=== PATIENT | female | born 1960 | race African-American/Black ===

== ENCOUNTER 2021-03-04 12:28 | Inpatient (IN) ==
[2021-03-04] MEDS ORDERED: PNEUMOCOCCAL VACCINE (23 VALENT) 0.5 ML VIAL IM ONE (14:49)
[2021-03-04] MEDS ORDERED: ONDANSETRON 4 MG/2 ML VIAL IV PRN (18:27)
[2021-03-04] MEDS ORDERED: ACETAMINOPHEN 325 MG TABLET PO PRN (18:27)
[2021-03-04] MEDS ORDERED: DOCUSATE SODIUM 100 MG CAPSULE PO PRN (18:29)
[2021-03-04] MEDS ORDERED: DICLOFENAC 1% GEL 100 GM TUBE TOP PRN (18:43)
[2021-03-04] MEDS ORDERED: LEVOFLOXACIN INJ 750 MG/150 ML PREMIX IV ONE (18:59)
[2021-03-04] MEDS ORDERED: LEVOFLOXACIN INJ 750 MG/150 ML PREMIX IV SCH (19:00)
[2021-03-04] MEDS: SODIUM CHLORIDE 0.9% 1,000 ML IV SCH (19:19)
[2021-03-04] MEDS: ENOXAPARIN 30 MG/0.3 ML SYRINGE SUBCUT SCH (19:19)
[2021-03-04] MEDS: SIMVASTATIN 20 MG TABLET PO SCH (21:06)
[2021-03-05 05:52] LABS: Basophils % 0.3 % (0.0-0.8); Hematocrit 39.7 VOL% (35.7-47.0); Hemoglobin 12.5 GM/DL (12.0-16.0); Immature Granulocytes % 0.5 %; Immature Granulocytes Absolute 0.02 #; Lymphocytes # 0.9 10*3/uL (1.4-4.0); Mean Corpuscular HGB Conc 31.5 GM/DL (32-36); Mean Corpuscular Volume 78.3 FL (87-102); Mean Platelet Volume 10.3 FL (9.6-12.0); Monocytes % 8.4 % (1.7-12.7); Neutrophils % 67.8 % (38.7-73.9); Platelet Count 223 T/CUMM (130-400); Red Blood Count 5.07 MC/CUMM (3.8-5.5)
[2021-03-05 06:15] LABS: Albumin 2.8 G/DL (3.4-5.0); Bilirubin,Total 0.9 MG/DL (0.20-1.00); Calcium 8.6 MG/DL (8.5-10.1); Osmolality,Calculated 267.4 MOS/KG (273-304); Potassium 3.1 MMOL/L (3.5-5.1); Total Protein 7.1 G/DL (6.4-8.2)
[2021-03-05] MEDS ORDERED: POTASSIUM CHLORIDE 10 MEQ TABLET PO SCH (08:00)
[2021-03-05 09:21] LABS: Albumin 2.9 G/DL (3.4-5.0); Bilirubin,Direct 0.18 MG/DL (0.0-0.20); Bilirubin,Indirect 0.6 MG/DL (0.0-1.0); Bilirubin,Total 0.8 MG/DL (0.20-1.00); Total Protein 7.1 G/DL (6.4-8.2)
[2021-03-05] MEDS: ASPIRIN EC 81 MG TABLET PO SCH (11:09)
[2021-03-05] MEDS: CHOLECALCIFEROL 5,000 UNIT TABLET PO SCH (11:09)
[2021-03-05] MEDS: MELOXICAM 7.5 MG TABLET PO SCH (11:10)
[2021-03-05] MEDS: TRIAMTERENE/HCTZ 37.5-25 MG TABLET PO SCH (11:10)
[2021-03-05] MEDS: PANTOPRAZOLE 40 MG TABLET PO SCH (11:10)
[2021-03-05] MEDS: cloNIDine 0.1 MG TABLET PO SCH (11:10)
[2021-03-05] MEDS: SODIUM CHLORIDE 0.9% 1,000 ML IV SCH (17:51)
[2021-03-05] MEDS: ENOXAPARIN 30 MG/0.3 ML SYRINGE SUBCUT SCH (17:51)
[2021-03-05] MEDS: SIMVASTATIN 20 MG TABLET PO SCH (21:00)
[2021-03-05] MEDS: SERTRALINE 50 MG TABLET PO SCH (21:01)
[2021-03-06] MEDS: SODIUM CHLORIDE 0.9% 1,000 ML IV SCH ×2 (00:30→21:13)
[2021-03-06] MEDS: MELOXICAM 7.5 MG TABLET PO SCH (08:50)
[2021-03-06] MEDS: MULTIVITAMIN (OCUVITE) TABLET PO SCH (08:50)
[2021-03-06] MEDS: ASPIRIN EC 81 MG TABLET PO SCH (08:51)
[2021-03-06] MEDS: POTASSIUM CHLORIDE 20 MEQ TABLET PO SCH (08:51)
[2021-03-06] MEDS: cloNIDine 0.1 MG TABLET PO SCH (08:51)
[2021-03-06] MEDS: TRIAMTERENE/HCTZ 37.5-25 MG TABLET PO SCH (08:51)
[2021-03-06] MEDS: PANTOPRAZOLE 40 MG TABLET PO SCH (08:51)
[2021-03-06] MEDS: CHOLECALCIFEROL 5,000 UNIT TABLET PO SCH (08:51)
[2021-03-06] MEDS: cefTRIAXone 2,000 MG in SODIUM CHLORIDE 0.9% 100 ML IV SCH (11:09)
[2021-03-06] MEDS: AZITHROMYCIN INJ 250 MG in SODIUM CHLORIDE 0.9% 250 ML IV SCH (11:59)
[2021-03-06] MEDS: SERTRALINE 50 MG TABLET PO SCH (21:12)
[2021-03-06] MEDS: SIMVASTATIN 20 MG TABLET PO SCH (21:12)
[2021-03-06] MEDS: ENOXAPARIN 30 MG/0.3 ML SYRINGE SUBCUT SCH (21:17)
[2021-03-07] MEDS: SODIUM CHLORIDE 0.9% 1,000 ML IV SCH ×2 (01:57→16:19)
[2021-03-07 05:32] LABS: Basophils % 0.2 % (0.0-0.8); Hematocrit 39.3 VOL% (35.7-47.0); Hemoglobin 12.4 GM/DL (12.0-16.0); Immature Granulocytes % 0.5 %; Immature Granulocytes Absolute 0.02 #; Lymphocytes # 1.4 10*3/uL (1.4-4.0); Lymphocytes % 31.9 % (21.3-54.2); Mean Corpuscular HGB Conc 31.6 GM/DL (32-36); Mean Platelet Volume 10.6 FL (9.6-12.0); Monocytes % 8.7 % (1.7-12.7); Neutrophils % 58.7 % (38.7-73.9); Platelet Count 346 T/CUMM (130-400); Red Blood Count 5.04 MC/CUMM (3.8-5.5); Red Cell Distribution Width 13.9 % (9.3-17.3); White Blood Count 4.3 T/CUMM (4-12)
[2021-03-07 06:03] LABS: Anisocytosis 1+; Burr Cells Few; Macrocytosis Slight; Osmolality,Calculated 267.4 MOS/KG (273-304); Platelet Estimate Normal; Potassium 3.1 MMOL/L (3.5-5.1)
[2021-03-07] MEDS: TRIAMTERENE/HCTZ 37.5-25 MG TABLET PO SCH (09:40)
[2021-03-07] MEDS: CHOLECALCIFEROL 5,000 UNIT TABLET PO SCH (09:40)
[2021-03-07] MEDS: MELOXICAM 7.5 MG TABLET PO SCH (09:40)
[2021-03-07] MEDS: cloNIDine 0.1 MG TABLET PO SCH (09:40)
[2021-03-07] MEDS: POTASSIUM CHLORIDE 20 MEQ TABLET PO SCH ×2 (09:40→21:35)
[2021-03-07] MEDS: PANTOPRAZOLE 40 MG TABLET PO SCH (09:40)
[2021-03-07] MEDS: ASPIRIN EC 81 MG TABLET PO SCH (09:40)
[2021-03-07] MEDS: cefTRIAXone 2,000 MG in SODIUM CHLORIDE 0.9% 100 ML IV SCH (09:40)
[2021-03-07] MEDS: MULTIVITAMIN (OCUVITE) TABLET PO SCH (09:40)
[2021-03-07] MEDS: AZITHROMYCIN INJ 250 MG in SODIUM CHLORIDE 0.9% 250 ML IV SCH (15:00)
[2021-03-07] MEDS ORDERED: SODIUM CHLOR 0.9% KCL 20 MEQ 20 MEQ/1,000 ML BAG IV SCH (15:00)
[2021-03-07] MEDS ORDERED: POTASSIUM CHLORIDE 20 MEQ TABLET PO ONE (16:23)
[2021-03-07] MEDS: AZITHROMYCIN 250 MG TABLET PO SCH (21:35)
[2021-03-07] MEDS: SIMVASTATIN 20 MG TABLET PO SCH (21:35)
[2021-03-07] MEDS: SERTRALINE 50 MG TABLET PO SCH (21:35)
[2021-03-07] MEDS: ENOXAPARIN 30 MG/0.3 ML SYRINGE SUBCUT SCH (21:37)
[2021-03-08 05:46] LABS: Basophils % 0.3 % (0.0-0.8); Eosinophils # 0.2 10*3/uL (0.0-0.87); Eosinophils % 2.8 % (0.00-10.9); Hematocrit 37.7 VOL% (35.7-47.0); Hemoglobin 12.2 GM/DL (12.0-16.0); Immature Granulocytes % 0.8 %; Immature Granulocytes Absolute 0.05 #; Lymphocytes # 1.1 10*3/uL (1.4-4.0); Lymphocytes % 17.8 % (21.3-54.2); Mean Corpuscular HGB Conc 32.4 GM/DL (32-36); Mean Corpuscular Volume 77.4 FL (87-102); Mean Platelet Volume 10.1 FL (9.6-12.0); Monocytes % 9.8 % (1.7-12.7); Neutrophils % 68.5 % (38.7-73.9); Platelet Count 372 T/CUMM (130-400); Red Blood Count 4.87 MC/CUMM (3.8-5.5); Red Cell Distribution Width 13.9 % (9.3-17.3); White Blood Count 6.1 T/CUMM (4-12)
[2021-03-08 06:12] LABS: Calcium 9.3 MG/DL (8.5-10.1); Potassium 3.7 MMOL/L (3.5-5.1)
[2021-03-08 07:57] LABS: Anisocytosis 1+; Burr Cells Few; Platelet Estimate Normal
[2021-03-08 07:58] LABS: Ovalocytes Few
[2021-03-08] MEDS: cloNIDine 0.1 MG TABLET PO SCH (08:22)
[2021-03-08] MEDS: POTASSIUM CHLORIDE 20 MEQ TABLET PO SCH ×2 (08:22→20:47)
[2021-03-08] MEDS: ASPIRIN EC 81 MG TABLET PO SCH (08:22)
[2021-03-08] MEDS: TRIAMTERENE/HCTZ 37.5-25 MG TABLET PO SCH (08:23)
[2021-03-08] MEDS: CHOLECALCIFEROL 5,000 UNIT TABLET PO SCH (08:23)
[2021-03-08] MEDS: AZITHROMYCIN 250 MG TABLET PO SCH (08:23)
[2021-03-08] MEDS: MELOXICAM 7.5 MG TABLET PO SCH (08:23)
[2021-03-08] MEDS: PANTOPRAZOLE 40 MG TABLET PO SCH (08:23)
[2021-03-08] MEDS: MULTIVITAMIN (OCUVITE) TABLET PO SCH (08:23)
[2021-03-08] MEDS: FAMOTIDINE 20 MG TABLET PO SCH ×2 (12:32→20:47)
[2021-03-08] MEDS: ZINC GLUCONATE 50 MG TABLET PO SCH (12:32)
[2021-03-08] MEDS: SERTRALINE 50 MG TABLET PO SCH (20:47)
[2021-03-08] MEDS: SIMVASTATIN 20 MG TABLET PO SCH (20:47)
[2021-03-08] MEDS: ENOXAPARIN 30 MG/0.3 ML SYRINGE SUBCUT SCH (20:47)
[2021-03-09 06:02] LABS: Basophils % 0.5 % (0.0-0.8); Eosinophils # 0.1 10*3/uL (0.0-0.87); Eosinophils % 1.7 % (0.00-10.9); Hematocrit 42.8 VOL% (35.7-47.0); Hemoglobin 13.5 GM/DL (12.0-16.0); Immature Granulocytes % 0.6 %; Immature Granulocytes Absolute 0.04 #; Lymphocytes # 1.7 10*3/uL (1.4-4.0); Lymphocytes % 26.6 % (21.3-54.2); Mean Corpuscular HGB Conc 31.5 GM/DL (32-36); Mean Corpuscular Volume 78.4 FL (87-102); Monocytes % 8.4 % (1.7-12.7); Neutrophils % 62.2 % (38.7-73.9); Platelet Count 464 T/CUMM (130-400); Red Blood Count 5.46 MC/CUMM (3.8-5.5); Red Cell Distribution Width 14.3 % (9.3-17.3); White Blood Count 6.3 T/CUMM (4-12)
[2021-03-09 06:16] LABS: Calcium 9.6 MG/DL (8.5-10.1); Osmolality,Calculated 269.4 MOS/KG (273-304); Potassium 3.8 MMOL/L (3.5-5.1)
[2021-03-09 08:14] LABS: Hypochromasia 3+; Microcytosis 1+; Platelet Estimate Increased
[2021-03-09] MEDS: CHOLECALCIFEROL 5,000 UNIT TABLET PO SCH (09:13)
[2021-03-09] MEDS: POTASSIUM CHLORIDE 20 MEQ TABLET PO SCH (09:13)
[2021-03-09] MEDS: AZITHROMYCIN 250 MG TABLET PO SCH (09:13)
[2021-03-09] MEDS: FAMOTIDINE 20 MG TABLET PO SCH (09:13)
[2021-03-09] MEDS: ASPIRIN EC 81 MG TABLET PO SCH (09:13)
[2021-03-09] MEDS: PANTOPRAZOLE 40 MG TABLET PO SCH (09:13)
[2021-03-09] MEDS: cloNIDine 0.1 MG TABLET PO SCH (09:13)
[2021-03-09] MEDS: ZINC GLUCONATE 50 MG TABLET PO SCH (09:13)
[2021-03-09] MEDS: TRIAMTERENE/HCTZ 37.5-25 MG TABLET PO SCH (09:13)
[2021-03-09] MEDS: MELOXICAM 7.5 MG TABLET PO SCH (09:14)
[2021-03-09] MEDS: MULTIVITAMIN (OCUVITE) TABLET PO SCH (09:14)
[2021-03-09 13:47] VITALS: BP 133/79
[2021-03-09] MEDS ORDERED: ENOXAPARIN 40 MG/0.4 ML SYRINGE SUBCUT SCH (18:30)
== END 2021-03-09 18:50 | disposition home or self-care (01) | DRG 177 ==
LOC: N.3E → N.CC 03-08 08:08
PROVIDERS: ADMIT Internal Medicine; ATTEND Internal Medicine